=== PATIENT | female | born 1995 | race Caucasian/White ===

== ENCOUNTER 2017-06-05 11:05 | Emergency (ER) | payer BC, OTHER ==
--- NOTE | 2017-06-05 12:26 | RAD ---
INDICATION: Pain and swelling at the left thumb metacarpal phalangeal joint after injury COMPARISON: None. TECHNIQUE: 4 views of the left hand were obtained. FINDINGS: The adequately corticated bones are in normal alignment. No significant focal osseous abnormality or fracture is seen. Joint spaces appear maintained. IMPRESSION: Normal left hand radiograph. If the patient's symptoms persist, follow-up imaging is recommended.
--- NOTE | 2017-06-05 12:38 | ED ---
Upper Extremity Pain - HPI Summary HPI Summary: Patient presents to the ED with left thumb pain after a hyperextension and pulling injury after a lead was tied around her thumb and her hoarse took off in front of her pulling the thumb. She denies any numbness, tingling, temperature changes to the area. Pulses +2 bilaterally. There is slight ecchymosis to the dorsum of the thumb and under the nail without pressure or subungual hematoma present. She has never injured the thumb before. She has radiating pain to the other 4 fingers, but denies any injury. She denies falling or hitting her head. She has not taken anything for pain relief and has not used ice. Symptoms are aggravated with abduction and relieved with rest. - History of Current Complaint Chief Complaint: EDExtremityUpper Stated Complaint: FINGER INJURY Time Seen by Provider: 06/05/17 11:26 Hx Obtained From: Patient Mechanism Of Injury: Twisted Onset/Duration: Started Hours Ago Timing: Constant Severity Initially: Mild Severity Currently: Mild Pain Location: Finger Character: Aching Aggravating Factor(s): Extension Alleviating Factor(s): Rest, Ice Associated Signs & Symptoms: Positive: Bruising. Negative: Swelling - Is a, Redness, Weakness, Numbness/Tingling Related History: Dominant Hand Right - Risk Factors Non-Orthopedic Risk Factor: Negative DVT Risk Factors: Negative Septic Arthritis Risk Factor: Negative Compartment Syndrome Risk Factors: Pain - Allergies/Home Medications Allergies/Adverse Reactions: Allergies Allergy/AdvReac Type Severity Reaction Status Date / Time MS Amoxicillin [Amoxicillin] Allergy Rash Verified 06/05/17 11:22 PMH/Surg Hx/FS Hx/Imm Hx Previously Healthy: Yes Psychiatric History: Reports: Hx Anxiety - Immunization History Hx Pertussis Vaccination: No Immunizations Up to Date: Unable to Obtain/Confirm Infectious Disease History: No Infectious Disease History: Denies: Traveled Outside the [place] in Last 30 Days - Social History Occupation: Employed Full-time Lives: With Family Alcohol Use: None Hx Substance Use: No Substance Use Type: Reports: None Hx Tobacco Use: No Smoking Status (MU): Never Smoked Tobacco Have You Smoked in the Last Year: No Review of Systems Negative: Fever, Chills, Fatigue, Skin Diaphoresis Cardiovascular: Negative Respiratory: Negative Positive: no symptoms reported, see HPI Positive: Arthralgia - left dorsum of the thumb pain MCP joint, Myalgia Skin: Negative Neurological: Negative All Other Systems Reviewed And Are Negative: Yes Physical Exam Triage Information Reviewed: Yes Vital Signs On Initial Exam: Initial Vitals Temp Pulse Resp BP Pulse Ox 97.7 F 76 16 115/66 97 06/05/17 11:17 18 11:17 06/05/17 11:17 06/05/17 11:17 06/05/17 11:17 Vital Signs Reviewed: Yes Appearance: Positive: Well-Appearing, Well-Nourished Skin: Positive: Warm, Skin Color Reflects Adequate Perfusion Head/Face: Positive: Normal Head/Face Inspection Neck: Positive: Supple, No Lymphadenopathy Respiratory/Lung Sounds: Positive: Clear to Auscultation, Breath Sounds Present Cardiovascular: Positive: RRR, Pulses are Symmetrical in both Upper and Lower Extremities Musculoskeletal: Positive: Pain @ - Left dorsum thumb Psychiatric: Positive: Normal, Affect/Mood Appropriate Diagnostics - Vital Signs Vital Signs Temp Pulse Resp BP Pulse Ox 06/05/17 11:17 97.7 F 76 16 115/66 97 - Laboratory Lab Statement: Any lab studies that have been ordered have been reviewed, and results considered in the medical decision making process. Course/Dx - Course Course Of Treatment: During the course of treatment, the patient is evaluated for left thumb hyperextension. She states she is unable to move about the MCP or PIP joint due to pain. There is slight ecchymosis to the PIP joint and under the nail, but no subungual hematoma present. Hand x-ray obtained and negative for any acute findings. On reexamination, patient is able to have range of motion at the MCP joint and minimal range of motion at the PIP joint. The wrist and thumb were Bandar wrapped. Patient is referred to Dr. Fermin. - Diagnoses Provider Diagnoses: Thumb pain Discharge - Discharge Plan Condition: Stable Disposition: HOME Patient Education Materials: Muscle Strain (ED) Referrals: Joseph Johnson MD [Primary Care Provider] - Dileep Fermin MD [Medical Doctor] - Additional Instructions: ibuprofen 600mg 3 times daily for pain and inflammation Ice several times per day If symptoms worsen or change, please follow up with orthopedics Continue with Bandar wrap throughout the next few days Make sure you take it out of the wrap at least once per day to provide full range of motion This will help prevent stiffness
[2017-06-05 12:51] VITALS: BP 105/84
== END 2017-06-05 12:49 | disposition home or self-care (01) ==
LOC: ED 11:05
DX: M79.645 Pain in left finger(s) (principal); F41.9 Anxiety disorder, unspecified; X50.9XXA Other and unspecified overexertion or strenuous movements or postures, initial encounter; Y92.9 Unspecified place or not applicable; V80.918A Animal-rider injured in other transport accident, initial encounter
CPT/HCPCS: 99281

== ENCOUNTER 2018-03-08 10:56 | Emergency (ER) | payer BC ==
[2018-03-08 13:11] VITALS: BP 111/72
--- NOTE | 2018-03-08 13:22 | UC ---
Complaint Female HPI - HPI Summary HPI Summary: Onset last night of burning with urination, frequency and urgency. No fever, nausea, back pain. - History Of Current Complaint Chief Complaint: UCGU Stated Complaint: FREQUENCY/PAIN W MICTURITION Time Seen by Provider: 03/08/18 13:06 Hx Obtained From: Patient Hx Last Menstrual Period: iud Onset/Duration: Gradual Onset, Lasting Hours, Still Present Severity Initially: Moderate Severity Currently: Moderate Pain Intensity: 6 Pain Scale Used: 0-10 Numeric Character: Burning Aggravating Factor(s): Urination Alleviating Factor(s): Nothing Associated Signs And Symptoms: Negative: Fever, Back Pain, Nausea - Allergies/Home Medications Allergies/Adverse Reactions: Allergies Allergy/AdvReac Type Severity Reaction Status Date / Time amoxicillin Allergy Rash Verified 03/08/18 13:12 Home Medications: Home Medications Cholecalciferol (Vitamin D3) [Vitamin D3] 1,000 unit PO 03/08/18 [History] Vitamin B Complex [Super B-50 Complex] 1 each PO 03/08/18 [History] riTUXimab* [RiTUXan*] 03/08/18 [History] PMH/Surg Hx/FS Hx/Imm Hx - Additional Past Medical History Additional PMH: DEVIC'S DISEASE - Surgical History Surgical History: None - Family History Known Family History: Negative: Hypertension - Social History Alcohol Use: Occasionally Substance Use Type: None Smoking Status (MU): Never Smoked Tobacco Have You Smoked in the Last Year: No - Immunization History Most Recent Influenza Vaccination: never Most Recent Tetanus Shot: 04/02/14 Most Recent Pneumonia Vaccination: never Review of Systems Constitutional: Negative Respiratory: Negative Cardiovascular: Negative Gastrointestinal: Abdominal Pain Genitourinary: Dysuria, Hematuria, Frequency, Urgency All Other Systems Reviewed And Are Negative: Yes Physical Exam Triage Information Reviewed: Yes Appearance: Well-Appearing, No Pain Distress, Well-Nourished Vital Signs: Initial Vital Signs Temp 99.1 F 03/08/18 13:08 Pulse 67 03/08/18 13:08 Resp 18 03/08/18 13:08 BP 111/72 03/08/18 13:08 Pulse Ox 100 03/08/18 13:08 Laboratory Tests 03/08/18 13:21 POC Urine Color Yellow POC Urine Clarity Cloudy POC Urine pH 5.5 POC Ur Specif [place] >= 1.030 POC Urine Protein 2+ A POC Ur Glucose (UA) Negative POC Urine Ketones 1+ A POC Urine Blood 3+ A POC Urine Nitrite Positive A POC Urine Bilirubin Negative POC Urine Urobilinogen 1.0 POC U Leukocyte Esteras 1+ A Vital Signs Reviewed: Yes Eyes: Positive: Conjunctiva Clear ENT: Positive: Hearing grossly normal Neck: Positive: Supple Respiratory: Positive: No respiratory distress, No accessory muscle use Cardiovascular: Positive: Pulses Normal Abdomen Description: Positive: Soft, Other: - SUPRAPUBIC TENDERNESS. Negative: CVA Tenderness (R), CVA Tenderness (L), Distended, Guarding Musculoskeletal: Positive: No Edema Neurological: Positive: Alert Psychological: Positive: Age Appropriate Behavior Skin: Negative: rashes Complaint Female Dx - Differential Dx/Diagnosis Provider Diagnoses: UTI Discharge - Sign-Out/Discharge Documenting (check all that apply): Patient Departure All imaging exams completed and their final reports reviewed: No Studies - Discharge Plan Condition: Stable Disposition: HOME Prescriptions: Phenazopyridine TAB* [Pyridium TAB*] 200 mg PO TID #6 tab Sulfamethox/Trimethoprim DS* [Bactrim DS 800/160 TAB*] 1 tab PO BID #10 tab Patient Education Materials: Urinary Tract Infection in Women (ED) Forms: *Work Release Referrals: Joseph Johnson MD [Primary Care Provider] - If Needed - Billing Disposition and Condition Condition: STABLE Disposition: Home
--- NOTE | 2018-03-10 11:40 | UC ---
- Progress Note Progress Note: Urine cx Prelim E coli. On Bactrim. Sens pending. RN to call pt to let her know to continue bactrim. We will let her know if further change needed. Discharge - Sign-Out/Discharge Documenting (check all that apply): Post-Discharge Follow Up All imaging exams completed and their final reports reviewed: No Studies - Discharge Plan Condition: Stable Disposition: HOME Prescriptions: Phenazopyridine TAB* [Pyridium TAB*] 200 mg PO TID #6 tab Sulfamethox/Trimethoprim DS* [Bactrim DS 800/160 TAB*] 1 tab PO BID #10 tab Patient Education Materials: Urinary Tract Infection in Women (ED) Forms: *Work Release Referrals: Joseph Johnson MD [Primary Care Provider] - If Needed - Billing Disposition and Condition Condition: STABLE Disposition: Home
== END 2018-03-08 13:35 | disposition home or self-care (01) ==
LOC: UCEAST 10:56
DX: N39.0 Urinary tract infection, site not specified (principal); R31.9 Hematuria, unspecified; Z88.0 Allergy status to penicillin
CPT/HCPCS: 81003; 87077; 87086; 87186; 99212; G0463

== ENCOUNTER 2018-10-02 07:28 | Emergency (ER) | payer BC ==
[2018-10-02 07:43] VITALS: BP 115/64
--- NOTE | 2018-10-02 08:25 | ED ---
GI/ HPI - HPI Summary HPI Summary: 23 yr old female with the complaint of dysuria, and frequency as well as suprapubic pressure. Onset of symptoms two days ago. No NV. NO fever, No flank pain. Her last uti was a couple months ago. LMP last week. NO other complaints. - History of Current Complaint Chief Complaint: UCGU Time Seen by Provider: 10/02/18 07:53 Stated Complaint: URINE ISSUES Hx Last Menstrual Period: now Pain Intensity: 9 - Allergy/Home Medications Allergies/Adverse Reactions: Allergies Allergy/AdvReac Type Severity Reaction Status Date / Time amoxicillin Allergy Rash Verified 10/02/18 07:43 PMH/Surg Hx/FS Hx/Imm Hx Psychiatric History: Reports: Hx Anxiety Infectious Disease History: No Infectious Disease History: Denies: Traveled Outside the [place] in Last 30 Days - Family History Known Family History: Positive: None Negative: Hypertension - Social History Occupation: Employed Full-time Alcohol Use: Occasionally Hx Substance Use: No Substance Use Type: Reports: None Hx Tobacco Use: No Smoking Status (MU): Never Smoked Tobacco Have You Smoked in the Last Year: No Review of Systems Constitutional: Negative Positive: dysuria, frequency All Other Systems Reviewed And Are Negative: Yes Physical Exam Triage Information Reviewed: Yes Vital Signs On Initial Exam: Initial Vitals Temp Pulse Resp BP Pulse Ox 97.5 F 80 20 115/64 100 10/02/18 07:37 10/02/18 07:37 10/02/18 07:37 10/02/18 07:37 10/02/18 07:37 Vital Signs Reviewed: Yes Appearance: Positive: Well-Appearing, No Pain Distress Skin: Positive: Warm, Skin Color Reflects Adequate Perfusion Head/Face: Positive: Normal Head/Face Inspection Eyes: Positive: EOMI ENT: Positive: Normal ENT inspection Neck: Positive: Nontender Respiratory/Lung Sounds: Positive: Clear to Auscultation, Breath Sounds Present Cardiovascular: Positive: RRR. Negative: Murmur Abdomen Description: Positive: Nontender Musculoskeletal: Positive: Strength/ROM Intact Neurological: Positive: Sensory/Motor Intact, Alert, Oriented to Person Place, Time, CN Intact II-III Psychiatric: Positive: Normal - [place] Coma Scale Best Eye Response: 4 - Spontaneous Best Motor Response: 6 - Obeys Commands Best Verbal Response: 5 - Oriented Coma Scale Total: 15 Diagnostics - Vital Signs Vital Signs Temp Pulse Resp BP Pulse Ox 10/02/18 07:37 97.5 F 80 20 115/64 100 - Laboratory Lab Results: Lab Results 10/02/18 10/02/18 Range/Units 07:54 07:56 POC Urine Color Dark yellow POC Urine Clarity Cloudy POC Urine pH 7.0 (5-9) POC Ur Specif [place] 1.020 (1.010-1.030) POC Urine Protein 1+ A (Negative) POC Ur Glucose (UA) Negative (Negative) POC Urine Ketones Negative (Negative) POC Urine Blood 2+ A (Negative) POC Urine Nitrite Positive A (Negative) POC Urine Bilirubin Negative (Negative) POC Urine Urobilinogen 0.2 (Negative) POC U Leukocyte Esteras 3+ A (Negative) POC Ur Test Negative (Negative) Lab Statement: Any lab studies that have been ordered have been reviewed, and results considered in the medical decision making process. GIGU Course/Dx - Course Course Of Treatment: 23 yr old with UTI. DC home on bactrim DS - Diagnoses Provider Diagnoses: UTI (urinary tract infection) Discharge - Sign-Out/Discharge Documenting (check all that apply): Patient Departure All imaging exams completed and their final reports reviewed: No Studies - Discharge Plan Condition: Good Disposition: HOME Prescriptions: Sulfamethox/Trimethoprim DS* [Bactrim DS 800/160 TAB*] 1 tab PO BID #10 tab Patient Education Materials: Urinary Tract Infection in Women (ED) Referrals: Joseph Johnson MD [Primary Care Provider] - - Billing Disposition and Condition Condition: GOOD Disposition: Home
== END 2018-10-02 08:20 | disposition home or self-care (01) ==
LOC: UCEAST 07:28
DX: N39.0 Urinary tract infection, site not specified (principal); Z88.0 Allergy status to penicillin
CPT/HCPCS: 81003; 84702; 87077; 87086; 87186; 99212; G0463

== ENCOUNTER 2018-11-22 17:52 | Emergency (ER) | payer BC ==
[2018-11-22 19:16] LABS: ABS Basophils 0.1 10^3/ul (0-0.2); ABS Eosinophils 0.1 10^3/ul (0-0.6); ABS Lymphocytes 1.5 10^3/ul (1.0-4.8); ABS Neutrophils 4.4 10^3/ul (1.5-7.7); Eosinophil % 1.5 %; Hematocrit 37 % (35-47); Lymphocyte % 21.3 %; Mean Corpuscular HGB Conc 35 g/dL (31-36); Mean Corpuscular Hemoglobin 32 pg (27-31); Mean Corpuscular Volume 91 fL (80-97); Mean Platelet Volume 7.3 fL (7.4-10.4); Platelet Count 343 10^3/uL (150-450); Red Cell Distribution Width 13 % (10-15); White Blood Count 7.1 10^3/uL (3.5-10.8)
[2018-11-22 19:35] LABS: Albumin 4.5 g/dL (3.2-5.2); Albumin/Globulin Ratio 1.8 (1-3); BUN/Creatinine Ratio 24.6 (8-20); Calcium 9.3 mg/dL (8.6-10.3); EGFR African American 135.5 (>60); Globulin 2.5 g/dL (2-4); Potassium 3.7 mmol/L (3.5-5.0); Total Bilirubin 0.5 mg/dL (0.2-1.0)
--- NOTE | 2018-11-22 22:47 | ED ---
Abdominal Pain/Female - HPI Summary HPI Summary: This pt is a 23 y/o F presenting to [facility] accompanied by her with a CC of abdominal cramping and vaginal bleeding today with a pain rated a 6/10 in severity. She stated that this is her second . She had her IUD removed at the end of July and 2 days after that there was light bleeding. This was also the time of her last known period. She stated that she took a test last week at home twice which came back positive both times. She denied any urinary symptoms, fevers, diaphoresis, N/V/D, and CP. She stated no aggravating or alleviating symptoms. She has had one successful in the past giving her a GPA of 2:1:0. - History of Current Complaint Chief Complaint: EDOBProblems Stated Complaint: CRAMPING AND BLEEDING, PER PT Time Seen by Provider: 11/22/18 22:27 Hx Obtained From: Patient Hx Last Menstrual Period: now ?: Yes - Onset/Duration: Sudden Onset - /today,, Lasting Hours, Still Present Timing: Constant Severity Initially: Moderate Severity Currently: Moderate Pain Intensity: 6 Pain Scale Used: 0-10 Numeric Location: Suprapubic Radiates: No Character: Cramping Aggravating Factor(s): Nothing Alleviating Factor(s): Nothing Associated Signs and Symptoms: Positive: Vaginal Bleeding, Other: - POSITIVE: abdonimal pain. Negative: Diaphoresis, Fever, Chest Pain, Urinary Symptoms, Nausea, Vomiting, Diarrhea Allergies/Adverse Reactions: Allergies Allergy/AdvReac Type Severity Reaction Status Date / Time amoxicillin Allergy Rash Verified 11/22/18 18:08 PMH/Surg Hx/FS Hx/Imm Hx Previously Healthy: Yes Psychiatric History: Reports: Hx Anxiety Infectious Disease History: No Infectious Disease History: Denies: Traveled Outside the [place] in Last 30 Days - Family History Known Family History: Negative: Hypertension - Social History Alcohol Use: Occasionally Hx Substance Use: No Substance Use Type: Reports: None Hx Tobacco Use: No Smoking Status (MU): Never Smoked Tobacco Have You Smoked in the Last Year: No Review of Systems Negative: Fever, Skin Diaphoresis Negative: Chest Pain Positive: Abdominal Pain. Negative: Vomiting, Diarrhea, Nausea Positive: other - vaginal bleeding All Other Systems Reviewed And Are Negative: Yes Physical Exam - Summary Physical Exam Summary: VITAL SIGNS: Reviewed. GENERAL: Patient is a well-developed and nourished female who is lying comfortable in the stretcher. Patient is not in any acute respiratory distress. HEAD AND FACE: No signs of trauma. No ecchymosis, hematomas or skull depressions. No sinus tenderness. EYES: PERRLA, EOMI x 2, No injected conjunctiva, no nystagmus. EARS: Hearing grossly intact. Ear canals and tympanic membranes are within normal limits. MOUTH: Oropharynx within normal limits. NECK: Supple, trachea is midline, no adenopathy, no JVD, no carotid bruit, no c- spine tenderness, neck with full ROM CHEST: Symmetric, no tenderness at palpation LUNGS: Clear to auscultation bilaterally. No wheezing or crackles. CVS: Regular rate and rhythm, S1 and S2 present, no murmurs or gallops appreciated. ABDOMEN: Soft, mild suprapubic tenderness. No signs of distention. No rebound no guarding, and no masses palpated. Bowel sounds are normal. EXTREMITIES: FROM in all major joints, no edema, no cyanosis or clubbing. NEURO: Alert and oriented x 3. No acute neurological deficits. Speech is normal and follows commands. SKIN: Dry and warm Triage Information Reviewed: Yes Vital Signs On Initial Exam: Initial Vitals Temp Pulse Resp BP Pulse Ox 98.9 F 72 16 121/84 100 11/22/18 18:05 11/22/18 18:05 11/22/18 18:05 11/22/18 18:05 11/22/18 18:05 Vital Signs Reviewed: Yes Diagnostics - Vital Signs Vital Signs Temp Pulse Resp BP Pulse Ox 11/22/18 20:09 98.8 F 70 16 110/78 100 11/22/18 18:05 98.9 F 72 16 121/84 100 - Laboratory Lab Results: Lab Results 11/22/18 11/22/18 11/22/18 Range/Units 18:58 18:58 18:58 WBC 7.1 (3.5-10.8) 10^3/uL RBC 4.10 (3.70-4.87) 10^6 /uL Hgb 13.0 (12.0-16.0) g/dL Hct 37 (35-47) % MCV 91 (80-97) fL MCH 32 H (27-31) pg MCHC 35 (31-36) g/dL RDW 13 (10-15) % Plt Count 343 (150-450) 10^3/uL MPV 7.3 L (7.4-10.4) fL Neut % (Auto) 62.2 % Lymph % (Auto) 21.3 % [place] % (Auto) 13.9 % Eos % (Auto) 1.5 % Baso % (Auto) 1.1 % Absolute Neuts (auto) 4.4 (1.5-7.7) 10^3/ul Absolute Lymphs (auto) 1.5 (1.0-4.8) 10^3/ul Absolute Monos (auto) 1.0 H (0-0.8) 10^3/ul Absolute Eos (auto) 0.1 (0-0.6) 10^3/ul Absolute Basos (auto) 0.1 (0-0.2) 10^3/ul Absolute Nucleated RBC 0.0 10^3/ul Nucleated RBC % 0.0 Sodium 139 (135-145) mmol/L Potassium 3.7 (3.5-5.0) mmol/L Chloride 104 (101-111) mmol/L Carbon Dioxide 27 (22-32) mmol/L Anion Gap 8 (2-11) mmol/L BUN 16 (6-24) mg/dL Creatinine 0.65 (0.51-0.95) mg/dL Est GFR ( Amer) 135.5 (>60) Est GFR (Non-Af Amer) 112.0 (>60) BUN/Creatinine Ratio 24.6 H (8-20) Glucose 118 H (70-100) mg/dL Calcium 9.3 (8.6-10.3) mg/dL Total Bilirubin 0.50 (0.2-1.0) mg/dL AST 15 (13-39) U/L ALT 9 (7-52) U/L Alkaline Phosphatase 52 (34-104) U/L Total Protein 7.0 (6.4-8.9) g/dL Albumin 4.5 (3.2-5.2) g/dL Globulin 2.5 (2-4) g/dL Albumin/Globulin Ratio 1.8 (1-3) Beta HCG, Quant 4099.00 mIU/mL Blood Type AB Positive Result Diagrams: 11/22/18 18:58 11/22/18 18:58 Lab Statement: Any lab studies that have been ordered have been reviewed, and results considered in the medical decision making process. - Ultrasound Tranvaginal Ultrasound Interpretation Completed By: Radiologist Summary of Ultrasound Findings: 1. Intrauterine of unknown viability showing an ultrasound age of 6 weeks 1 day (DENI = 07/17/2019). Recommend followup ultrasound in 7-10 days to confirm viability. 2. Small subchorionic implantation hemorrhage. ED physician has reviewed this report. Abdominal Pain Fem Course/Dx - Course Course Of Treatment: This pt is a 23 y/o F presenting to [facility] with a CC of heavy abdominal cramping and bleeding today. Her PE showed that she had mild suprapubic tenderness. Upon exam she had a US that showed she was 6 and 1/2 weeks but did not show a heart beat. She was recomended to receive another US in 7-10 days and to keep her follow up appointment that she has scheduled for Tuesday11/29/18. She was diagnosed with a threatened misscarriage or due to her bloodwork and US findings that showed: 1. Intrauterine of unknown viability showing an ultrasound age of 6. weeks 1 day (DENI = 07/17/2019). Recommend followup ultrasound in 7-10 days to confirm viability.2. Small subchorionic implantation hemorrhage. - Diagnoses Provider Diagnoses: Threatened Discharge - Sign-Out/Discharge Documenting (check all that apply): Patient Departure - discharge Patient Received Moderate/Deep Sedation with Procedure: No - Discharge Plan Condition: Stable Disposition: HOME Prescriptions: Metoclopramide TAB* [Reglan TAB*] 10 mg PO Q6H PRN #20 tab PRN Reason: Nausea/Vomiting Patient Education Materials: Threatened Miscarriage (ED) Referrals: Joseph Johnson MD [Primary Care Provider] - Additional Instructions: Please keep your appointment scheduled for tuesday. Currently, the plan is to have a US in 7-10 days to confirm the state of your . You are at risk for a threatened miscarriage. - Attestation Statements Document Initiated by Scribe: Yes Documenting Scribe: Luis Hwang Provider For Whom Scribe is Documenting (Include Credential): Soraida Ferrer MD Scribe Attestation: Luis Auguste, scribed for Soraida Ferrer MD on 11/22/18 at 2303. Status of Scribe Document: Ready
[2018-11-22] MEDS ORDERED: Metoclopramide TAB* 10 MG PO ONE (22:58)
[2018-11-22 22:59] VITALS: BP 106/68
== END 2018-11-22 22:58 | disposition home or self-care (01) ==
LOC: ED 17:52
DX: O20.0 Threatened abortion (principal); Z3A.01 Less than 8 weeks gestation of pregnancy; Z88.0 Allergy status to penicillin
CPT/HCPCS: 36415; 76817; 80053; 84702; 85025; 86900; 86901; 99282; A9270-GY

== ENCOUNTER 2020-06-02 10:43 | Inpatient (IN) ==
[2020-06-02] MEDS ORDERED: NS 0.9% 1000 ml BAG 1,000 ML IV ONE ×2 (11:06→11:14)
[2020-06-02] MEDS ORDERED: Ondansetron 4 mg VIAL 2 MG/ML 2 ml VIAL IV ONE (11:14)
[2020-06-02 11:42] LABS: ABS Lymphocytes 0.8 10^3/ul (1.0-4.8); ABS Monocytes 0.9 10^3/ul (0-0.8); ABS Neutrophils 8.4 10^3/ul (1.5-7.7); Eosinophil % 0.5 %; Hematocrit 40 % (35-47); Hemoglobin 13.6 g/dL (12.0-16.0); Lymphocyte % 7.6 %; Mean Corpuscular HGB Conc 34 g/dL (31-36); Mean Corpuscular Hemoglobin 31 pg (27-31); Mean Corpuscular Volume 90 fL (80-97); Mean Platelet Volume 7.8 fL (7.4-10.4); Platelet Count 375 10^3/uL (150-450); Red Blood Count 4.46 10^6 /uL (3.70-4.87); Red Cell Distribution Width 13 % (10-15); White Blood Count 10.2 10^3/uL (3.5-10.8)
[2020-06-02 11:56] LABS: Albumin 4.1 g/dL (3.2-5.2); Albumin/Globulin Ratio 1.6 (1-3); EGFR African American 158.3 (>60); EGFR Non-African American 130.9 (>60); Globulin 2.6 g/dL (2-4); Potassium 3.6 mmol/L (3.5-5.0); Total Bilirubin 0.5 mg/dL (0.2-1.0); Total Protein 6.7 g/dL (6.4-8.9)
[2020-06-02 12:43] LABS: BUN/Creatinine Ratio 16.1 (8-20)
[2020-06-02] MEDS ORDERED: diPHENhydraMINE 25 mg TAB PO PRN (13:19)
[2020-06-02 13:50] LABS: Urine Appearance Cloudy; Urine Bilirubin Negative (Negative); Urine Blood Negative (Negative); Urine Color Yellow; Urine Glucose Negative (Negative); Urine Ketones 2+ (Negative); Urine Nitrite Negative (Negative); Urine Protein 1+(30 mg/dL) (Negative); Urine Specific Gravity 1.025 (1.010-1.030); Urine Urobilinogen Negative (Negative)
[2020-06-02 13:55] LABS: Urine Bacteria Absent (Absent); Urine Red Blood Cell Absent (Absent); Urine Squamous Epithelial Cell Present (Absent); Urine White Blood Cell Trace(0-5/hpf) (Absent)
[2020-06-02] MEDS: Metoclopramide 5 MG/ML VIAL (10 mg) IV PRN (14:28)
[2020-06-02] MEDS: NS 0.9% 1000 ml BAG 1,000 ML IV SCH (15:02)
[2020-06-03] MEDS: NS 0.9% 1000 ml BAG 1,000 ML IV SCH ×3 (00:55→20:22)
[2020-06-03] MEDS: Metoclopramide 5 MG/ML VIAL (10 mg) IV PRN (07:39)
[2020-06-03] MEDS: Ondansetron 4 mg VIAL 2 MG/ML 2 ml VIAL IV PRN (16:55)
[2020-06-03] MEDS ORDERED: Phenol 1.4% Throat Spray 177 ml BTL MT PRN (17:52)
[2020-06-03] MEDS ORDERED: Calcium Carb (TUMS) 500 mg CHEW TAB PO PRN (17:52)
[2020-06-04] MEDS: Ondansetron 4 mg VIAL 2 MG/ML 2 ml VIAL IV PRN ×3 (01:16→15:11)
[2020-06-04] MEDS: NS 0.9% 1000 ml BAG 1,000 ML IV SCH (07:02)
[2020-06-04 16:49] VITALS: BP 106/64
== END 2020-06-04 17:05 | disposition home or self-care (01) | DRG 566 ==
LOC: ED 10:43 → SSU 10:43
PROVIDERS: ADMIT Hospitalist; ATTEND Hospitalist

== ENCOUNTER 2021-01-11 08:32 | Inpatient (IN) ==
[2021-01-11] MEDS ORDERED: Buffered Lidocaine 1% SYRIN 1 ml INTRADERM ONE (08:59)
[2021-01-11] MEDS ORDERED: Lactated Ringers 1000 ml BAG 1,000 ML IV ONE ×2 (08:59→10:39)
[2021-01-11] MEDS ORDERED: Lactated Ringers 1000 ml BAG 1,000 ML IV SCH ×3 (09:00→15:00)
[2021-01-11] MEDS ORDERED: OBEPIDURAL 250 ML EPIDURAL ONE (09:14)
[2021-01-11 09:28] LABS: ABS Eosinophils 0.1 10^3/ul (0-0.6); ABS Lymphocytes 0.9 10^3/ul (1.0-4.8); ABS Monocytes 0.9 10^3/ul (0-0.8); ABS Neutrophils 6.8 10^3/ul (1.5-7.7); Eosinophil % 0.7 %; Hematocrit 35 % (35-47); Hemoglobin 11.4 g/dL (12.0-16.0); Lymphocyte % 10.5 %; Mean Corpuscular HGB Conc 33 g/dL (31-36); Mean Corpuscular Hemoglobin 27 pg (27-31); Mean Corpuscular Volume 82 fL (80-97); Mean Platelet Volume 8.5 fL (7.4-10.4); Platelet Count 393 10^3/uL (150-450); Red Blood Count 4.28 10^6 /uL (3.70-4.87); Red Cell Distribution Width 15 % (10-15); White Blood Count 8.8 10^3/uL (3.5-10.8)
[2021-01-11 09:46] LABS: Urine Benzodiazepine Screen None Detected (None Detect); Urine Cannabinoids Screen None Detected (None Detect); Urine Opiates Screen None Detected (None Detect)
[2021-01-11] MEDS ORDERED: Sodium Citrate/Citric Acid LIQ 15 ML UDC PO PRN (10:39)
[2021-01-11] MEDS ORDERED: Phenylephrine 40 mcg/mL 10mL (400mcg) SYRINGE IV PUSH PRN ×2 (10:39)
[2021-01-11] MEDS ORDERED: Lactated Ringers 1000 ml BAG 500 ML IV PRN (10:39)
[2021-01-11 10:57] LABS: Urine Appearance Clear; Urine Bilirubin Negative (Negative); Urine Blood 2+ (Negative); Urine Color Yellow; Urine Glucose Negative (Negative); Urine Ketones Negative (Negative); Urine Nitrite Negative (Negative); Urine Protein Negative (Negative); Urine Specific Gravity 1.018 (1.002-1.030); Urine Urobilinogen Negative (Negative)
[2021-01-11] MEDS ORDERED: OBEPIDURAL 250 ML EPIDURAL SCH (11:00)
[2021-01-11 11:43] LABS: Urine Bacteria Absent (Absent); Urine Red Blood Cell 3+(>10/hpf) (Absent); Urine Squamous Epithelial Cell Present (Absent); Urine White Blood Cell Trace(0-5/hpf) (Absent)
[2021-01-11] MEDS ORDERED: Oxytocin in LR 20 UNITS/1,000 ML BAG IVPB ONE (14:19)
[2021-01-11] MEDS ORDERED: Dibucaine 1% OINT 28.35 GM TUBE PR PRN (14:43)
[2021-01-11] MEDS ORDERED: Witch Hazel PAD JAR TOPICAL PRN (14:43)
[2021-01-11] MEDS ORDERED: Oxytocin in LR 20 UNITS/1,000 ML BAG IVPB SCH (15:00)
[2021-01-12 09:37] LABS: ABS Eosinophils 0.1 10^3/ul (0-0.6); ABS Monocytes 0.8 10^3/ul (0-0.8); ABS Neutrophils 8.3 10^3/ul (1.5-7.7); Eosinophil % 0.5 %; Hematocrit 36 % (35-47); Hemoglobin 11.4 g/dL (12.0-16.0); Lymphocyte % 9.9 %; Mean Corpuscular HGB Conc 32 g/dL (31-36); Mean Corpuscular Hemoglobin 26 pg (27-31); Mean Corpuscular Volume 83 fL (80-97); Mean Platelet Volume 8.3 fL (7.4-10.4); Platelet Count 378 10^3/uL (150-450); Red Blood Count 4.37 10^6 /uL (3.70-4.87); Red Cell Distribution Width 15 % (10-15); White Blood Count 10.3 10^3/uL (3.5-10.8)
[2021-01-12 11:49] VITALS: BP 122/72
== END 2021-01-12 13:00 | disposition home or self-care (01) | DRG 560 ==
LOC: MCHOBOUT 08:32 → MCHOB 08:58
PROVIDERS: ADMIT Obstetrics & Gynecology; ATTEND Obstetrics & Gynecology